=== PATIENT | female | born 2000 | race Caucasian/White ===

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

== ENCOUNTER 2021-02-14 20:50 | Emergency (ER) | payer OTHER ==
[~2021-02-14] VITALS: Ht 167.6 cm; Wt 120.5 kg
[2021-02-14 20:51] VITALS: BP 165/88
== END 2021-02-15 01:19 | disposition left against medical advice (07) ==
LOC: M ED 20:50
DX: Z53.21 Procedure and treatment not carried out due to patient leaving prior to being seen by health care provider (principal)

== ENCOUNTER 2022-06-13 15:41 | Emergency (ER) | payer OTHER ==
[~2022-06-13 15:41] MED LIST changes: +CLIN-250 PO; -CLIN300C6 PO; -LATU40TA; +LATU40TA2
[2022-06-13 15:42] VITALS: BP 140/79
[2022-06-13] MEDS ORDERED: FLUORESCEIN OPHTH 1 MG STRIP OU ONE (16:55)
[2022-06-13] MEDS ORDERED: PROPARACAINE 0.5% OPHTH SOL 15ML OU ONE (16:55)
[2022-06-13] MEDS ORDERED: BACITRACIN OINTMENT 30GM TUBE TOP STA (17:09)
[2022-06-13] MEDS ORDERED: BOOSTRIX/ADACEL VACCINE (DIPHTH/PERTUSS/ACELL/TETANUS) 0.5ML SYR IM ONE (17:10)
[2022-06-13] MEDS ORDERED: BACI500O8 TOP (17:19)
== END 2022-06-13 17:49 | disposition home or self-care (01) ==
LOC: M ED 15:41
DX: S05.01XA Injury of conjunctiva and corneal abrasion without foreign body, right eye, initial encounter (principal); F17.200 Nicotine dependence, unspecified, uncomplicated; Y92.009 Unspecified place in unspecified non-institutional (private) residence as the place of occurrence of the external cause; Y93.K9 Activity, other involving animal care; Y99.9 Unspecified external cause status; Z79.899 Other long term (current) drug therapy

== ENCOUNTER 2022-07-03 15:56 | Emergency (ER) | payer OTHER ==
[~2022-07-03] VITALS: Ht 167.6 cm; Wt 119.0 kg
[~2022-07-03 15:56] MED LIST changes: +BACI500O8 TOP
[2022-07-04] MEDS ORDERED: methocarbamoL 750 MG TAB PO ONE (01:00)
[2022-07-04] MEDS ORDERED: LIDOCAINE 5% (LIDODERM) PATCH TD ONE (01:00)
[2022-07-04] MEDS ORDERED: METH-1165 PO (01:05)
[2022-07-04] MEDS ORDERED: IBUP-1022 PO (01:05)
[2022-07-04] MEDS ORDERED: ASPE4PAD TOP (01:05)
[2022-07-04] MEDS: KETOROLAC 60MG 2ML VIAL IM ONE ×2 (01:06→01:13)
[2022-07-04 01:26] VITALS: BP 137/89
== END 2022-07-04 01:45 | disposition home or self-care (01) ==
LOC: M ED 15:56
DX: S09.90XA Unspecified injury of head, initial encounter (principal); M54.50 Low back pain, unspecified; M54.2 Cervicalgia; F31.9 Bipolar disorder, unspecified; V49.49XA Driver injured in collision with other motor vehicles in traffic accident, initial encounter; Y92.410 Unspecified street and highway as the place of occurrence of the external cause; Z79.891 Long term (current) use of opiate analgesic; Z79.899 Other long term (current) drug therapy
CPT/HCPCS: 70450; 72125; 96372; 99283; J1885

== ENCOUNTER 2022-07-07 14:57 | Emergency (ER) | payer OTHER ==
[~2022-07-07] VITALS: Ht 167.6 cm; Wt 104.5 kg
[~2022-07-07 14:57] MED LIST changes: +ASPE4PAD TOP; +METH-1165 PO
[2022-07-07 16:18] LABS: BASO % 0.2 % (0.0-1.0); EOS # 0.1 10^3/uL (0.0-0.5); HEMATOCRIT 43.4 % (36.0-47.0); LYMPH # 1.7 10^3/uL (1.5-5.0); MEAN CORPUSCULAR HGB CONC 32.3 g/dl (32.0-36.5); MONO # 0.8 10^3/uL (0.0-0.8); MONO % 6.2 % (2.0-8.0); NEUTROPHILS # 9.4 10^3/uL (1.5-8.5); NEUTROPHILS % 78.3 % (36.0-66.0); PLATELET COUNT, AUTOMATED 311 10^3/uL (150-450); RED BLOOD COUNT 4.82 10^6/uL (4.00-5.40); WHITE BLOOD COUNT 12.1 10^3/uL (4.0-10.0)
[2022-07-07 16:35] LABS: ALBUMIN 3.8 G/DL (3.2-5.2); ALKALINE PHOSPHATASE 98 U/L (46-116); ALT/SGPT 29 U/L (7.0-40); AST/SGOT 27 U/L (<34); BILIRUBIN,TOTAL 0.3 MG/DL (0.3-1.2); BLOOD UREA NITROGEN 20 MG/DL (9-23); CALCIUM LEVEL 9.3 MG/DL (8.5-10.1); CARBON DIOXIDE LEVEL 27 MMOL/L (20-31); CHLORIDE LEVEL 104 MMOL/L (98-107); CREATININE FOR GFR 0.93 MG/DL (0.55-1.30); GLUCOSE, FASTING 88 MG/DL (60-100); POTASSIUM SERUM 4.1 MMOL/L (3.5-5.1); SODIUM LEVEL 139 MMOL/L (136-145); TOTAL PROTEIN 7.2 G/DL (5.7-8.2)
[2022-07-07 16:36] LABS: BILIRUBIN,DIRECT 0.1 MG/DL (<0.4)
[2022-07-07] MEDS ORDERED: ISOVUE-370 76% 100ML VIAL As Ordered ONE (16:37)
[2022-07-07] MEDS ORDERED: ACETAMINOPHEN TAB 650MG DOSE (2X325MG) PO ONE (18:45)
[2022-07-07 19:52] VITALS: BP 170/94
== END 2022-07-07 20:02 | disposition home or self-care (01) ==
LOC: M ED 14:57
DX: S52.041A Displaced fracture of coronoid process of right ulna, initial encounter for closed fracture (principal); M54.2 Cervicalgia; F41.9 Anxiety disorder, unspecified; F31.9 Bipolar disorder, unspecified; V49.40XA Driver injured in collision with unspecified motor vehicles in traffic accident, initial encounter; Z79.891 Long term (current) use of opiate analgesic; Z79.899 Other long term (current) drug therapy

== ENCOUNTER → 2022-07-30 | Outpatient (CLI) | payer OTHER | LOC: M SOG 09:09 | PROVIDERS: ATTEND Orthopaedic Surgery | DX: Z53.9 Procedure and treatment not carried out, unspecified reason (principal) ==

== ENCOUNTER → 2022-09-15 | Outpatient (REF) ==
[2022-09-15 14:55] LABS: RSV AMPLIFICATION NEGATIVE (NEGATIVE)
== END ==
LOC: M EMP 14:08
PROVIDERS: ATTEND Family Medicine
DX: Z11.52 Encounter for screening for COVID-19 (principal)

== ENCOUNTER → 2022-09-26 | Outpatient (REF) | payer OTHER | LOC: M WUC 18:25 | PROVIDERS: ATTEND Student in an Organized Health Care Education/Training Program | DX: J02.9 Acute pharyngitis, unspecified (principal) ==

== ENCOUNTER → 2022-10-22 | Outpatient (CLI) | payer OTHER | LOC: M WUC 12:26 | PROVIDERS: ATTEND Nurse Practitioner Family | DX: E66.01 Morbid (severe) obesity due to excess calories (principal); F17.290 Nicotine dependence, other tobacco product, uncomplicated; F31.9 Bipolar disorder, unspecified ==

== ENCOUNTER → 2022-10-22 | Outpatient (CLI) | payer OTHER | LOC: M EKG 13:00 | PROVIDERS: ATTEND Nurse Practitioner Family | DX: E66.01 Morbid (severe) obesity due to excess calories (principal) ==

== ENCOUNTER → 2023-03-02 | Outpatient (CLI) | payer OTHER | LOC: M WHC 09:17 | PROVIDERS: ATTEND Obstetrics & Gynecology | DX: Z34.02 Encounter for supervision of normal first pregnancy, second trimester (principal) ==

== ENCOUNTER → 2023-03-04 | Outpatient (CLI) | payer OTHER ==
[2023-03-04 19:06] LABS: HEMATOCRIT 36.9 % (36.0-47.0); HEMOGLOBIN 12.3 g/dl (12.0-15.5); MEAN CORPUSCULAR HEMOGLOBIN 29.9 pg (27.0-33.0); MEAN CORPUSCULAR HGB CONC 33.3 g/dl (32.0-36.5); MEAN CORPUSCULAR VOLUME 89.6 fl (80.0-96.0); PLATELET COUNT, AUTOMATED 262 10^3/uL (150-450); RED BLOOD COUNT 4.12 10^6/uL (4.00-5.40); WHITE BLOOD COUNT 9.7 10^3/uL (4.0-10.0)
[2023-03-04 19:17] LABS: GLUCOSE CHALLENGE TEST 1 HOUR 105 MG/DL (LESS THAN 140)
[2023-03-04 20:07] LABS: HEPATITIS C VIRUS ABY INDEX 0.16 INDEX (<0.8); HIV 1&2 SCREEN NEGATIVE (NEGATIVE)
[2023-03-04 21:32] LABS: GC DNA AMPLIFICATION NEGATIVE (NEGATIVE)
== END ==
LOC: M WUC 12:48
PROVIDERS: ATTEND Obstetrics & Gynecology
DX: Z34.91 Encounter for supervision of normal pregnancy, unspecified, first trimester (principal)

== ENCOUNTER → 2023-03-19 | Outpatient (CLI) | payer OTHER | LOC: M WHC 14:41 | PROVIDERS: ATTEND Advanced Practice Midwife | DX: Z34.02 Encounter for supervision of normal first pregnancy, second trimester (principal); Z36.3 Encounter for antenatal screening for malformations ==

== ENCOUNTER 2023-04-27 08:52 | Outpatient (CLI) | payer OTHER ==
[~2023-04-27] VITALS: Ht 167.6 cm; Wt 158.1 kg
[2023-04-27 09:09] VITALS: BP 149/74
[2023-04-27 09:10] VITALS: BP 143/70
[2023-04-27 09:28] VITALS: BP 131/62
[2023-04-27] MEDS ORDERED: PRENTAB9 PO (09:31)
[2023-04-27] MEDS ORDERED: ACET325C5 PO (09:31)
[2023-04-27] MEDS ORDERED: HOME MED LIST COMPLETE! XX SCH (09:35)
[2023-04-27] MEDS ORDERED: FIORICET TAB PO ONE (12:00)
== END 2023-04-27 13:03 | disposition home or self-care (01) ==
LOC: M LDO 08:52
PROVIDERS: ATTEND Obstetrics & Gynecology
DX: O26.892 Other specified pregnancy related conditions, second trimester (principal); R51.9 Headache, unspecified; Z3A.27 27 weeks gestation of pregnancy
CPT/HCPCS: 59025; G0463

== ENCOUNTER → 2023-05-13 | Outpatient (CLI) | payer OTHER ==
[~2023-05-13] MED LIST changes: +ACET325C5 PO; +PRENTAB9 PO
[2023-05-13 17:09] LABS: HEMATOCRIT 36.9 % (36.0-47.0); HEMOGLOBIN 12.1 g/dl (12.0-15.5); MEAN CORPUSCULAR HEMOGLOBIN 29.5 pg (27.0-33.0); MEAN CORPUSCULAR HGB CONC 32.8 g/dl (32.0-36.5); PLATELET COUNT, AUTOMATED 300 10^3/uL (150-450); WHITE BLOOD COUNT 11.5 10^3/uL (4.0-10.0)
[2023-05-13 18:33] LABS: GC DNA AMPLIFICATION NEGATIVE (NEGATIVE)
== END ==
LOC: M WUC 10:48
PROVIDERS: ATTEND Advanced Practice Midwife
DX: O99.212 Obesity complicating pregnancy, second trimester (principal); Z3A.00 Weeks of gestation of pregnancy not specified

== ENCOUNTER → 2023-05-26 | Outpatient (CLI) | payer OTHER | LOC: M LAB 07:38 | PROVIDERS: ATTEND Advanced Practice Midwife | DX: O99.810 Abnormal glucose complicating pregnancy (principal); Z3A.00 Weeks of gestation of pregnancy not specified ==

== ENCOUNTER → 2023-07-01 | Outpatient (REF) | payer OTHER | LOC: M PLALAB 11:21 | PROVIDERS: ATTEND Obstetrics & Gynecology | DX: Z34.00 Encounter for supervision of normal first pregnancy, unspecified trimester (principal) ==

== ENCOUNTER 2023-07-02 11:15 | Outpatient (CLI) | payer OTHER ==
[~2023-07-02] VITALS: Ht 167.6 cm; Wt 165.9 kg
[2023-07-02] MEDS ORDERED: HOME MED LIST COMPLETE! XX SCH (11:40)
[2023-07-02 11:41] VITALS: BP 119/57
[2023-07-02] MEDS ORDERED: BETAMETHASONE SOLUSPAN 6MG/ML 5ML VIAL IM ONE (13:20)
== END 2023-07-02 14:05 | disposition home or self-care (01) ==
LOC: M LDO 11:15
PROVIDERS: ATTEND Advanced Practice Midwife
DX: O41.93X9 Disorder of amniotic fluid and membranes, unspecified, third trimester, other fetus (principal); Z3A.36 36 weeks gestation of pregnancy
CPT/HCPCS: 59025; 96372; G0463; J0702

== ENCOUNTER → 2023-07-02 | Outpatient (CLI) | payer OTHER, SELFPAY | LOC: M RAD 10:16 | PROVIDERS: ATTEND Obstetrics & Gynecology | DX: O99.213 Obesity complicating pregnancy, third trimester (principal); Z3A.36 36 weeks gestation of pregnancy ==

== ENCOUNTER 2023-07-03 13:37 | Outpatient (CLI) | payer OTHER ==
[~2023-07-03] VITALS: Ht 167.6 cm; Wt 164.4 kg
[2023-07-03] MEDS ORDERED: BETAMETHASONE SOLUSPAN 6MG/ML 5ML VIAL IM ONE (13:50)
[2023-07-03 14:24] VITALS: BP 110/54
== END 2023-07-03 14:50 ==
LOC: M LDO 13:37
PROVIDERS: ATTEND Obstetrics & Gynecology
DX: O41.93X0 Disorder of amniotic fluid and membranes, unspecified, third trimester, not applicable or unspecified (principal); Z3A.36 36 weeks gestation of pregnancy
CPT/HCPCS: 59025; 76815; 76820; 96372; G0463; J0702

== ENCOUNTER 2023-07-20 17:15 | Inpatient (IN) | payer OTHER ==
[~2023-07-20] VITALS: Ht 167.6 cm; Wt 167.4 kg
[2023-07-20 17:44] VITALS: BP 119/59
[2023-07-20 18:19] LABS: HEMATOCRIT 36.2 % (36.0-47.0); HEMOGLOBIN 12.1 g/dl (12.0-15.5); MEAN CORPUSCULAR HGB CONC 33.4 g/dl (32.0-36.5); MEAN CORPUSCULAR VOLUME 86.8 fl (80.0-96.0); PLATELET COUNT, AUTOMATED 280 10^3/uL (150-450); RED BLOOD COUNT 4.17 10^6/uL (4.00-5.40); WHITE BLOOD COUNT 10.5 10^3/uL (4.0-10.0)
[2023-07-20] MEDS ORDERED: OXYTOCIN DRIP 30 UNITS in IV 1 EA IV PRN ×4 (19:00)
[2023-07-20] MEDS ORDERED: METHYLERGONOVINE MALEATE 0.2MG/ML 1ML VIAL IM PRN (19:00)
[2023-07-20] MEDS ORDERED: miSOPROStol 50MCG 1/2 TABLET BUC ONE (19:00)
[2023-07-20] MEDS ORDERED: LACTATED RINGER'S 1000 ML IV PRN (19:00)
[2023-07-20] MEDS ORDERED: TRANEXAMIC ACID INJection 1,000 MG in NS 100 ML IV PRN (19:00)
[2023-07-20] MEDS ORDERED: CARBOPROST TROMETHAMINE 250 MCG/ML AMP IM PRN (19:00)
[2023-07-20 19:28] VITALS: BP 125/72
[2023-07-20] MEDS ORDERED: ACETAMINOPHEN 500 MG TAB PO ONE (21:50)
[2023-07-21] VITALS (46 sets, daily range): BP systolic 101–159; BP diastolic 55–94
[2023-07-21] MEDS ORDERED: miSOPROStol 50MCG 1/2 TABLET BUC ONE (01:20)
[2023-07-21] MEDS ORDERED: OXYTOCIN DRIP 30 UNITS in IV 1 EA IV SCH (06:10)
[2023-07-21] MEDS: LR 1,000 ML IV SCH ×3 (07:47→21:40)
[2023-07-21] MEDS ORDERED: PROMETHAZINE 25MG/ML 1ML VIAL IV ONE (12:15)
[2023-07-21] MEDS ORDERED: BUTORPHANOL 2 MG/ML 1ML VIAL IV ONE (12:15)
[2023-07-21] MEDS ORDERED: diphenhydrAMINE 50MG/ML VIAL IV PRN ×2 (15:05→23:45)
[2023-07-21] MEDS ORDERED: LR 500 ML IV PRN (15:05)
[2023-07-21] MEDS ORDERED: ONDANSETRON 4MG 2ML VIAL IV PRN ×2 (15:05→23:45)
[2023-07-21] MEDS ORDERED: FENTANYL/ROPIVACAINE/NACL BAG 100 ML EPIDURAL SCH (15:05)
[2023-07-21] MEDS ORDERED: EPIDURAL/PCA KEYS XX PRN ×2 (15:05)
[2023-07-21] MEDS ORDERED: ePHEDrine SULFATE 25 MG/5 ML(5MG/ML) SYRINGE IVP PRN (15:05)
[2023-07-21] MEDS ORDERED: NALOXONE INJ 0.4MG/1ML VIAL IV PRN ×3 (15:05→23:45)
[2023-07-21] MEDS ORDERED: REFLB XX ONE (15:06)
[2023-07-21] MEDS ORDERED: FENTANYL 2MCG/ML ROPIVACAINE 0.2% IN 0.9% NACL 100ML IVBAG As Ordered ONE (15:07)
[2023-07-21] MEDS: ACETAMINOPHEN 500 MG TAB PO PRN ×2 (18:07→21:40)
[2023-07-21] MEDS ORDERED: LACTATED RINGER'S 1000 ML IV STA (22:19)
[2023-07-21] MEDS ORDERED: BICITRA 30ML SOLN UDC PO ONE (22:20)
[2023-07-21] MEDS ORDERED: ceFAZolin SOD 3 GM IV Place Holder IV ONE (22:20)
[2023-07-21] MEDS ORDERED: AZITHROMYCIN INJ 500 MG, VIAL MATE ADAPTER 1 EACH in NS 250 ML IV ONE (22:20)
[2023-07-21] MEDS ORDERED: ceFAZolin SOD 1 GM in D5W MINI-BAG PLUS 50 ML IV ONE (22:25)
[2023-07-21] MEDS ORDERED: ceFAZolin SOD 2 GM in IV 1 EA IV ONE (22:25)
[2023-07-21] MEDS ORDERED: ONDANSETRON 4MG 2ML VIAL As Ordered ONE (23:20)
[2023-07-21] MEDS ORDERED: SODIUM BICARBONATE 8.4% INJ 50MEQ 50ML VIAL As Ordered ONE (23:20)
[2023-07-21] MEDS ORDERED: ACETAMINOPHEN 1000MG 100ML IV BAG As Ordered ONE (23:20)
[2023-07-21] MEDS ORDERED: LIDOCAINE 2% W/EPINEPHRINE 20ML VIAL **PRES FREE As Ordered ONE (23:20)
[2023-07-21] MEDS ORDERED: KETOROLAC 60MG 2ML VIAL As Ordered ONE (23:20)
[2023-07-21] MEDS ORDERED: MORPHINE PRES-FREE INJ 10 MG/10 ML VIAL As Ordered ONE (23:20)
[2023-07-21] MEDS ORDERED: PHENYLephrine 500MCG 5ML (100MCG/ML) SYRINGE As Ordered ONE (23:20)
[2023-07-21] MEDS ORDERED: OXYTOCIN 30UNITS IN 0.9% NaCl 500ML IV BAG As Ordered ONE (23:20)
[2023-07-21] MEDS ORDERED: **NOTE PATIENT COMMENT** MISC XX SCH (23:45)
[2023-07-21] MEDS ORDERED: METOCLOPRAMIDE INJ 10MG/2ML VIAL IV PRN (23:45)
[2023-07-21] MEDS ORDERED: oxyCODONE 5MG TAB PO PRN (23:45)
[2023-07-21] MEDS ORDERED: fentaNYL 100 MCG/2 ML INJECTION IV PRN (23:45)
[2023-07-21] MEDS: SLF 3 ML SYR IV SCH (23:45)
[2023-07-21] MEDS ORDERED: LR 1,000 ML IV SCH (23:45)
[2023-07-22] VITALS (10 sets, daily range): BP systolic 115–141; BP diastolic 56–62; TEMP 98; O2SAT 97–98
[2023-07-22] MEDS ORDERED: ANUSOL HC CREAM 30GM TOP PRN (00:15)
[2023-07-22] MEDS ORDERED: OXYTOCIN DRIP 30 UNITS in IV 1 EA IV SCH (00:15)
[2023-07-22] MEDS ORDERED: RHOGAM 300MCG (1500IU) INJ IM SCH (00:15)
[2023-07-22] MEDS ORDERED: MORPHINE 4 MG/ML 1ML VIAL IV PRN (00:15)
[2023-07-22] MEDS ORDERED: ACETAMINOPHEN 500 MG TAB PO PRN (00:15)
[2023-07-22] MEDS ORDERED: PERCOCET 5MG/325MG TAB PO PRN (00:15)
[2023-07-22] MEDS: FIORICET TAB PO PRN ×4 (00:58→20:21)
[2023-07-22] MEDS: LR 1,000 ML IV SCH ×2 (05:58→14:10)
[2023-07-22] MEDS: KETOROLAC 30 MG/ML 1ML VIAL IV SCH ×3 (05:59→19:33)
[2023-07-22] MEDS: SLF 3 ML SYR IV SCH ×2 (07:45→20:22)
[2023-07-22 08:34] LABS: HEMATOCRIT 32.7 % (36.0-47.0); HEMOGLOBIN 10.9 g/dl (12.0-15.5); MEAN CORPUSCULAR HEMOGLOBIN 29.3 pg (27.0-33.0); MEAN CORPUSCULAR HGB CONC 33.3 g/dl (32.0-36.5); MEAN CORPUSCULAR VOLUME 87.9 fl (80.0-96.0); PLATELET COUNT, AUTOMATED 237 10^3/uL (150-450); RED BLOOD COUNT 3.72 10^6/uL (4.00-5.40); WHITE BLOOD COUNT 13.9 10^3/uL (4.0-10.0)
[2023-07-22 08:58] LABS: CREATININE FOR GFR 0.62 MG/DL (0.55-1.30); GLOMERULAR FILTRATION RATE > 60.0 (>60)
[2023-07-22] MEDS: DOCUSATE SODIUM 100MG CAPSULE PO SCH ×2 (09:00→20:22)
[2023-07-22] MEDS: PRENATAL VITAMINS CHEWABLE TABLET PO SCH (09:00)
[2023-07-22] MEDS: ENOXAPARIN 40MG/0.4ML SYRINGE (J1650 PER 10MG) SC SCH ×2 (10:48→20:23)
[2023-07-22] MEDS ORDERED: CALCIUM CARBONATE 500 MG CHEW U/D PO PRN (20:10)
[2023-07-22] MEDS: SIMETHICONE 80MG CHEW TAB PO PRN (20:32)
[2023-07-23] MEDS: FIORICET TAB PO PRN ×3 (00:33→23:34)
[2023-07-23 02:00] VITALS: BP 127/59; O2SAT 98
[2023-07-23] MEDS: SIMETHICONE 80MG CHEW TAB PO PRN (03:37)
[2023-07-23] MEDS: IBUPROFEN 800 MG TAB PO SCH ×3 (03:38→18:15)
[2023-07-23 06:00] VITALS: BP 126/72; O2SAT 99
[2023-07-23 06:56] LABS: HEMATOCRIT 30.3 % (36.0-47.0); HEMOGLOBIN 9.8 g/dl (12.0-15.5); MEAN CORPUSCULAR HEMOGLOBIN 28.9 pg (27.0-33.0); MEAN CORPUSCULAR HGB CONC 32.3 g/dl (32.0-36.5); MEAN CORPUSCULAR VOLUME 89.4 fl (80.0-96.0); PLATELET COUNT, AUTOMATED 236 10^3/uL (150-450); RED BLOOD COUNT 3.39 10^6/uL (4.00-5.40); WHITE BLOOD COUNT 9.6 10^3/uL (4.0-10.0)
[2023-07-23] MEDS: ENOXAPARIN 40MG/0.4ML SYRINGE (J1650 PER 10MG) SC SCH ×2 (08:04→20:10)
[2023-07-23] MEDS: PRENATAL VITAMINS CHEWABLE TABLET PO SCH (08:04)
[2023-07-23] MEDS: DOCUSATE SODIUM 100MG CAPSULE PO SCH ×2 (08:04→20:09)
[2023-07-23] MEDS: ONDANSETRON 4MG ORAL DISINTEGRATING TAB PO PRN ×2 (10:54→16:52)
[2023-07-23] MEDS: PERCOCET 5MG/325MG TAB PO PRN ×2 (10:54→16:53)
[2023-07-23 18:00] VITALS: BP 126/71; O2SAT 98
[2023-07-24] MEDS: IBUPROFEN 800 MG TAB PO SCH ×2 (02:45→10:14)
[2023-07-24] MEDS: PERCOCET 5MG/325MG TAB PO PRN (05:23)
[2023-07-24 06:00] VITALS: BP 126/54; O2SAT 97
[2023-07-24] MEDS ORDERED: MEASLES,MUMPS,RUBELLA VACCINE INJ (MMR-II) SC.IMMUN ONE (09:00)
[2023-07-24] MEDS ORDERED: ONDA4TAB6 PO (09:55)
[2023-07-24] MEDS ORDERED: COLA100C5 PO (09:55)
[2023-07-24] MEDS ORDERED: PERCOCET PO (09:55)
[2023-07-24] MEDS ORDERED: BUTA-198 PO (09:55)
[2023-07-24] MEDS ORDERED: IBUP80TA PO (09:55)
[2023-07-24] MEDS: FIORICET TAB PO PRN (10:13)
[2023-07-24] MEDS: DOCUSATE SODIUM 100MG CAPSULE PO SCH (10:14)
[2023-07-24] MEDS: PRENATAL VITAMINS CHEWABLE TABLET PO SCH (10:14)
[2023-07-24] MEDS: ENOXAPARIN 40MG/0.4ML SYRINGE (J1650 PER 10MG) SC SCH (10:14)
== END 2023-07-24 14:05 | disposition home or self-care (01) | DRG 540 ==
LOC: M LDI 17:15 → M OBS 07-22 02:00
PROVIDERS: ADMIT Obstetrics & Gynecology; ATTEND Obstetrics & Gynecology
PROC: 3E033VJ Introduction of Other Hormone into Peripheral Vein, Percutaneous Approach (ICD-10-PCS; 2023-07-20)
PROC: 10D00Z1 Extraction of Products of Conception, Low, Open Approach (ICD-10-PCS; principal; 2023-07-21 23:30)
DX: O41.03X0 Oligohydramnios, third trimester, not applicable or unspecified (principal); F17.290 Nicotine dependence, other tobacco product, uncomplicated; Z37.0 Single live birth; Z3A.39 39 weeks gestation of pregnancy; O62.0 Primary inadequate contractions; O89.4 Spinal and epidural anesthesia-induced headache during the puerperium; O99.334 Smoking (tobacco) complicating childbirth

== ENCOUNTER → 2023-11-02 | Outpatient (CLI) | payer OTHER ==
[~2023-11-02] MED LIST changes: +BUTA-198 PO; +COLA100C5 PO; +ONDA4TAB6 PO; +PERCOCET PO
[2023-11-02 12:48] LABS: BASO % 0.2 % (0.0-1.0); EOS # 0.1 10^3/uL (0.0-0.5); EOS % 1.6 % (0.0-3.0); HEMATOCRIT 42.4 % (36.0-47.0); HEMOGLOBIN 12.9 g/dl (12.0-15.5); LYMPH # 2.4 10^3/uL (1.5-5.0); LYMPH % 28.9 % (24.0-44.0); MEAN CORPUSCULAR HEMOGLOBIN 25.7 pg (27.0-33.0); MEAN CORPUSCULAR HGB CONC 30.4 g/dl (32.0-36.5); MEAN CORPUSCULAR VOLUME 84.6 fl (80.0-96.0); MONO # 0.8 10^3/uL (0.0-0.8); MONO % 10.1 % (2.0-8.0); NEUTROPHILS # 4.8 10^3/uL (1.5-8.5); NEUTROPHILS % 58.8 % (36.0-66.0); PLATELET COUNT, AUTOMATED 303 10^3/uL (150-450); RED BLOOD COUNT 5.01 10^6/uL (4.00-5.40); WHITE BLOOD COUNT 8.1 10^3/uL (4.0-10.0)
[2023-11-02 13:01] LABS: HEMOGLOBIN A1c 5.3 % (4.0-6.0)
[2023-11-02 13:06] LABS: ALBUMIN 3.2 G/DL (3.2-5.2); ALKALINE PHOSPHATASE 137 U/L (46-116); ALT/SGPT 71 U/L (7.0-40); AST/SGOT 30 U/L (<34); BILIRUBIN,TOTAL 0.3 MG/DL (0.3-1.2); BLOOD UREA NITROGEN 16 MG/DL (9-23); CALCIUM LEVEL 9.1 MG/DL (8.5-10.1); CARBON DIOXIDE LEVEL 28 MMOL/L (20-31); CHLORIDE LEVEL 108 MMOL/L (98-107); CHOLESTEROL LEVEL 166 MG/DL (<200); CHOLESTEROL RISK RATIO 4.98 (<5); CREATININE FOR GFR 0.93 MG/DL (0.55-1.30); GLOMERULAR FILTRATION RATE > 60.0 (>60); GLUCOSE, FASTING 81 MG/DL (60-100); HDL CHOLESTEROL 33.3 MG/DL (>40); IRON (FE) 40 UG/DL (50-170); LDL CHOLESTEROL 101.3 MG/DL (<100); NON-HDL-C 132.7 MG/DL; POTASSIUM SERUM 4.4 MMOL/L (3.5-5.1); SODIUM LEVEL 141 MMOL/L (136-145); TOTAL PROTEIN 6.8 G/DL (5.7-8.2); TRIGLYCERIDES LEVEL 157 MG/DL (<150); VITAMIN B12 LEVEL 232 PG/ML (211-911)
[2023-11-02 13:07] LABS: FERRITIN 13.3 NG/ML (7.3-270.7); THYROID STIMULATING HORMONE 1.573 uIU/ML (0.55-4.78); TOTAL 25(OH) VITAMIN D 17.9 NG/ML (20.0-100.0)
[2023-11-02 13:08] LABS: FREE T4 0.96 NG/DL (0.89-1.76)
== END ==
LOC: M WUC 10:34
PROVIDERS: ATTEND Nurse Practitioner Family
DX: Z01.812 Encounter for preprocedural laboratory examination (principal); D51.9 Vitamin B12 deficiency anemia, unspecified; E66.01 Morbid (severe) obesity due to excess calories; E55.9 Vitamin D deficiency, unspecified

== ENCOUNTER → 2024-01-13 | Outpatient (REF) | payer OTHER ==
[~2024-01-13] MED LIST changes: +ONDA-282 PO; -ONDA4TAB6 PO
[2024-01-18 13:53] LABS: HPV APTIMA Not Detected (Not Detected)
== END ==
LOC: M SFHCWAGY 18:05
PROVIDERS: ATTEND Nurse Practitioner Family
DX: Z12.4 Encounter for screening for malignant neoplasm of cervix (principal); R87.610 Atypical squamous cells of undetermined significance on cytologic smear of cervix (ASC-US)
CPT/HCPCS: 87624; G0123

== ENCOUNTER 2024-08-07 20:05 | Emergency (ER) | payer OTHER ==
[~2024-08-07] VITALS: Ht 167.6 cm; Wt 122.3 kg
[2024-08-07 22:30] LABS: BASO # 0.1 10^3/uL (0.0-0.2); BASO % 0.5 % (0.0-1.0); EOS # 0.1 10^3/uL (0.0-0.5); HEMATOCRIT 41.6 % (36.0-47.0); HEMOGLOBIN 13.1 g/dl (12.0-15.5); LYMPH % 19.8 % (24.0-44.0); MEAN CORPUSCULAR HEMOGLOBIN 26.5 pg (27.0-33.0); MEAN CORPUSCULAR HGB CONC 31.5 g/dl (32.0-36.5); MONO # 0.7 10^3/uL (0.0-0.8); MONO % 6.8 % (2.0-8.0); NEUTROPHILS # 7.4 10^3/uL (1.5-8.5); NEUTROPHILS % 71.7 % (36.0-66.0); PLATELET COUNT, AUTOMATED 315 10^3/uL (150-450); RED BLOOD COUNT 4.95 10^6/uL (4.00-5.40); WHITE BLOOD COUNT 10.3 10^3/uL (4.0-10.0)
[2024-08-07] MEDS ORDERED: ONDANSETRON 4MG 2ML VIAL As Ordered ONE (22:39)
[2024-08-07] MEDS: ONDANSETRON 4MG 2ML VIAL IV ONE (22:42)
[2024-08-07] MEDS: HYDROMORPHONE HCL 0.5 MG/ 0.5 ML SYRINGE IV ONE (22:42)
[2024-08-07 22:53] LABS: LIPASE 126 U/L (12-53)
[2024-08-07 22:54] LABS: CPK CREATINE PHOSPHOKINASE 133 U/L (34-145)
[2024-08-07 22:55] LABS: ALBUMIN 3.6 G/DL (3.2-5.2); ALKALINE PHOSPHATASE 263 U/L (35-104); ALT/SGPT 161 U/L (7.0-40); AST/SGOT 262 U/L (<34); BILIRUBIN,DIRECT 0.4 MG/DL (<0.4); BILIRUBIN,TOTAL 0.6 MG/DL (0.3-1.2); BLOOD UREA NITROGEN 20 MG/DL (9-23); CALCIUM LEVEL 8.7 MG/DL (8.5-10.1); CARBON DIOXIDE LEVEL 24 MMOL/L (20-31); CHLORIDE LEVEL 110 MMOL/L (98-107); CK-MB VALUE MASS < 1.0 NG/ML (<3.6); CREATININE FOR GFR 0.78 MG/DL (0.55-1.30); GLOMERULAR FILTRATION RATE > 60.0 (>60); GLUCOSE, FASTING 86 MG/DL (60-100); HCG, SERUM QUALITATIVE NEGATIVE (NEGATIVE); MB/CK RELATIVE INDEX 0.75 (< OR =4); POTASSIUM SERUM 4.2 MMOL/L (3.5-5.1); SODIUM LEVEL 142 MMOL/L (136-145); TOTAL PROTEIN 7.3 G/DL (5.7-8.2)
[2024-08-07 23:21] LABS: AMYLASE 55 U/L (30-118)
[2024-08-07] MEDS ORDERED: ISOVUE-370 76% 100ML VIAL As Ordered ONE (23:37)
[2024-08-08] MEDS: GASTROGRAFIN SOLUTION 30ML PO SCH (00:05)
[2024-08-08 00:10] LABS: CK-MB VALUE MASS < 1.0 NG/ML (<3.6)
[2024-08-08 00:11] LABS: CPK CREATINE PHOSPHOKINASE 119 U/L (34-145); MB/CK RELATIVE INDEX 0.84 (< OR =4)
[2024-08-08] MEDS: ONDANSETRON 4MG ORAL DISINTEGRATING TAB PO ONE (00:20)
[2024-08-08 03:01] VITALS: BP 121/57; TEMP 97.8; O2SAT 97
[2024-08-08] MEDS ORDERED: ONDA-282 PO (04:01)
[2024-08-08] MEDS ORDERED: HYDR-3713 PO (04:01)
== END 2024-08-08 04:21 | disposition home or self-care (01) ==
LOC: EDBD 20:05 → M ED 22:38
DX: K85.90 Acute pancreatitis without necrosis or infection, unspecified (principal); R00.1 Bradycardia, unspecified; E66.9 Obesity, unspecified; F31.9 Bipolar disorder, unspecified; F17.290 Nicotine dependence, other tobacco product, uncomplicated; Z79.1 Long term (current) use of non-steroidal anti-inflammatories (NSAID); Z79.83 Long term (current) use of bisphosphonates; Z79.899 Other long term (current) drug therapy; Z98.84 Bariatric surgery status
CPT/HCPCS: 74177; 80048; 80076; 82150; 82550; 82553; 83690; 84484; 84703; 85025; 93005; 93041; 94760; 96374; 99285; J1171; J2405; Q9967

== ENCOUNTER → 2024-08-21 | Outpatient (REF) ==
[~2024-08-21] MED LIST changes: +HYDR-3713 PO
== END ==
LOC: M EMP 09:19
PROVIDERS: ATTEND Family Medicine
DX: Z11.52 Encounter for screening for COVID-19 (principal)

== ENCOUNTER 2025-01-29 16:45 | Emergency (ER) | payer OTHER ==
[~2025-01-29] VITALS: Ht 167.6 cm; Wt 115.0 kg
[~2025-01-29 16:45] MED LIST changes: -MEDR150I12; +MEDR150I15; -PHEN-239 PO; +PHEN37.511 PO
[2025-01-29 16:50] VITALS: BP 139/68; TEMP 98.2; O2SAT 98
== END 2025-01-29 17:14 | disposition left against medical advice (07) ==
LOC: M ED 16:45
DX: Z53.21 Procedure and treatment not carried out due to patient leaving prior to being seen by health care provider (principal)

== ENCOUNTER → 2025-01-31 | Outpatient (CLI) | payer OTHER | LOC: M PLALAB 12:57 | PROVIDERS: ATTEND Advanced Practice Midwife | DX: R10.32 Left lower quadrant pain (principal) ==

== ENCOUNTER → 2025-02-02 | Outpatient (REF) | payer OTHER | LOC: M LABWUC 12:00 | PROVIDERS: ATTEND Advanced Practice Midwife | DX: R10.32 Left lower quadrant pain (principal) ==

== ENCOUNTER → 2025-02-05 | Outpatient (REF) | payer OTHER | LOC: M LABWUC 17:22 | PROVIDERS: ATTEND Advanced Practice Midwife | DX: O20.0 Threatened abortion (principal); Z3A.00 Weeks of gestation of pregnancy not specified ==

== ENCOUNTER → 2025-02-07 | Outpatient (CLI) | payer OTHER | LOC: M WUC 08:12 | PROVIDERS: ATTEND Advanced Practice Midwife | DX: O20.0 Threatened abortion (principal); Z3A.00 Weeks of gestation of pregnancy not specified ==

== ENCOUNTER → 2025-02-08 | Outpatient (CLI) | payer OTHER | LOC: M WHC 11:54 | PROVIDERS: ATTEND Obstetrics & Gynecology | DX: O02.81 Inappropriate change in quantitative human chorionic gonadotropin (hCG) in early pregnancy (principal); Z3A.01 Less than 8 weeks gestation of pregnancy ==

== ENCOUNTER → 2025-02-13 | Outpatient (REF) | payer OTHER | LOC: M LABWUC 14:21 | PROVIDERS: ATTEND Advanced Practice Midwife | DX: O20.9 Hemorrhage in early pregnancy, unspecified (principal) ==

== ENCOUNTER → 2025-02-15 | Outpatient (CLI) | payer OTHER | LOC: M RAD 11:07 | PROVIDERS: ATTEND Obstetrics & Gynecology | DX: O02.81 Inappropriate change in quantitative human chorionic gonadotropin (hCG) in early pregnancy (principal) ==

== ENCOUNTER → 2025-02-16 | Outpatient (REF) | payer OTHER | LOC: M LABWUC 12:04 | PROVIDERS: ATTEND Obstetrics & Gynecology | DX: O03.4 Incomplete spontaneous abortion without complication (principal) ==

== ENCOUNTER → 2025-04-20 | Outpatient (REF) | payer OTHER ==
[~2025-04-20] MED LIST changes: -IBUP-1022 PO; +IBUP600T42 PO
== END ==
LOC: M LAB REF 12:25
PROVIDERS: ATTEND Physician Assistant
DX: B34.9 Viral infection, unspecified (principal); J03.90 Acute tonsillitis, unspecified

== ENCOUNTER → 2025-04-26 | Outpatient (CLI) | payer OTHER ==
[2025-04-26 15:14] LABS: BASO # 0.0 10^3/uL (0.0-0.2); BASO % 0.3 % (0.0-1.0); EOS # 0.1 10^3/uL (0.0-0.5); EOS % 1.3 % (0.0-3.0); LYMPH # 2.1 10^3/uL (1.5-5.0); LYMPH % 30.9 % (24.0-44.0); MONO # 0.6 10^3/uL (0.0-0.8); MONO % 7.9 % (2.0-8.0); NEUTROPHILS # 4.1 10^3/uL (1.5-8.5); NEUTROPHILS % 59.5 % (36.0-66.0); PLATELET COUNT, AUTOMATED 298 10^3/uL (150-450)
[2025-04-26 15:22] LABS: ALT/SGPT 21 U/L (7.0-40); AST/SGOT 21 U/L (<34); CALCIUM LEVEL 8.7 MG/DL (8.5-10.1); CARBON DIOXIDE LEVEL 27 MMOL/L (20-31); CHLORIDE LEVEL 107 MMOL/L (98-107); CHOLESTEROL LEVEL 149 MG/DL (<200); CHOLESTEROL RISK RATIO 3.62 (<5); CREATININE FOR GFR 0.85 MG/DL (0.55-1.30); FREE T4 1.04 NG/DL (0.89-1.76); GLOMERULAR FILTRATION RATE > 90.0 (>60); IRON (FE) 20 UG/DL (50-170); LDL CHOLESTEROL 92.3 MG/DL (<100); NON-HDL-C 107.9 MG/DL; PERCENT SATURATION 4.7 % (13.2-45.0); POTASSIUM SERUM 4.3 MMOL/L (3.5-5.1); SODIUM LEVEL 142 MMOL/L (136-145); TOTAL 25(OH) VITAMIN D 15.8 NG/ML (20.0-100.0); TRIGLYCERIDES LEVEL 78 MG/DL (<150)
[2025-04-26 15:28] LABS: ESTIMATED AVERAGE GLUCOSE 105.0 MG/DL (60-110)
== END ==
LOC: M WUC 09:30
DX: R10.12 Left upper quadrant pain (principal); E66.9 Obesity, unspecified

== ENCOUNTER → 2025-05-15 | Outpatient (REF) | payer OTHER ==
[2025-05-15 12:54] LABS: APPEARANCE, URINE CLOUDY (CLEAR); BACTERIA, URINE AUTO NEGATIVE (NEGATIVE); BILIRUBIN, URINE AUTO NEGATIVE (NEGATIVE); BLOOD, URINE BLOOD 2+ (NEGATIVE); GLUCOSE, URINE (UA) AUTO NEGATIVE (NEGATIVE); KETONE, URINE AUTO NEGATIVE (NEGATIVE); LEUKOCYTE ESTERASE, URINE AUTO 2+ (NEGATIVE); MUCUS, URINE SMALL (NEGATIVE); NITRITE, URINE AUTO NEGATIVE (NEGATIVE); PROTEIN, URINE AUTO 2+ mg/dL (NEGATIVE); RBC, URINE AUTO 179 /HPF (0-3); SPECIFIC GRAVITY URINE AUTO 1.029 (1.002-1.035); SQUAMOUS EPITHELIAL CELL UR AU 26 /HPF (0-6); UROBILINOGEN, URINE AUTO 2.0 mg/dL (0.0-2.0); WBC, URINE AUTO TNTC /HPF (0-3)
== END ==
LOC: M LAB REF 11:56
PROVIDERS: ATTEND Physician Assistant Medical
DX: N39.0 Urinary tract infection, site not specified (principal)

== ENCOUNTER 2025-06-25 09:21 | Outpatient (CLI) | payer OTHER ==
[~2025-06-25] VITALS: Ht 167.6 cm; Wt 111.4 kg
[~2025-06-25 09:21] MED LIST changes: +ALBUTEROL SULFATE 2.5 MG/0.5 ML INH CONCENTRATE NEB SOLN INH PRN; +EPINEPHrine INJ 1 MG/ML 1ML AMP IM PRN; +diphenhydrAMINE 50 MG/ML VIAL IV PRN
[2025-06-25 09:35] VITALS: BP 110/67; O2SAT 98
[2025-06-25] MEDS: IRON SUCROSE 200MG IVP IV ONE (09:51)
[2025-06-25 10:30] VITALS: BP 106/56; O2SAT 100
== END 2025-06-25 10:30 | disposition home or self-care (01) ==
LOC: M INFU 09:21
DX: D50.9 Iron deficiency anemia, unspecified (principal)
CPT/HCPCS: 96374; J1756

== ENCOUNTER 2025-07-02 09:55 | Outpatient (CLI) | payer OTHER ==
[~2025-07-02] VITALS: Ht 167.6 cm; Wt 109.0 kg
[2025-07-02] MEDS: IRON SUCROSE 200MG IVP IV ONE (10:15)
[2025-07-02 10:52] VITALS: BP 115/56; O2SAT 98
[2025-07-02 11:20] VITALS: BP 115/73; O2SAT 98
== END 2025-07-02 10:53 ==
LOC: M INFU 09:55
DX: D50.9 Iron deficiency anemia, unspecified (principal)
CPT/HCPCS: 96374; J1756